=== PATIENT | female | born 1980 | race Caucasian/White ===

== ENCOUNTER 2019-06-07 06:19 | Inpatient (IN) | payer OTHER ==
[2019-06-07] MEDS ORDERED: LIDOCAINE 0.5% (PF) 5 MG/ML (50 ML SDV) SQ PRN (06:36)
[2019-06-07] MEDS ORDERED: CARBOPROST TROMETHAMINE 250 MCG/ML 1 ML AMP IM PRN (06:36)
[2019-06-07] MEDS ORDERED: OXYTOCIN 10 UNIT/ML 1 ML VIAL IM PRN (06:36)
[2019-06-07] MEDS ORDERED: METHYLERGONOVINE 0.2 MG/ML 1 ML AMP IM PRN (06:36)
[2019-06-07] MEDS ORDERED: TERBUTALINE 1 MG/ML VIAL SQ PRN (06:36)
[2019-06-07] MEDS: LACTATED RINGERS 1,000 ML IV SCH ×2 (06:39→09:25)
[2019-06-07] MEDS ORDERED: OXYTOCIN 30 UNITS/500 ML NS 30 UNIT in SALINE 1 500ML.BAG IV SCH (06:45)
[2019-06-07 06:54] LABS: Basophils % (A) 0 %; Eosinophils # (A) 0.1 k/uL (0-0.7); Eosinophils % (A) 1 %; HCT 32.4 % (34.0-46.0); Lymphocytes % (A) 19 %; MCH 28.4 pg (25.0-35.0); MCHC 34.1 g/dL (31.0-37.0); MCV 83.3 fL (80.0-100.0); Monocytes # (A) 0.4 k/uL (0-1.0); Monocytes % (A) 3 %; Neutrophils # (A) 7.7 k/uL (1.3-7.7); Neutrophils % (A) 75 %; Platelet Count 199 k/uL (150-450); RBC 3.89 m/uL (3.80-5.40); RDW 14.2 % (11.5-15.5); WBC 10.4 k/uL (3.8-10.6)
[2019-06-07] MEDS ORDERED: ROPIVACAINE 100 MG, fentaNYL (PF) 200 MCG in SODIUM CHLORIDE 0.9% 76 ML EPIDURAL ONE (10:13)
--- NOTE | 2019-06-07 10:36 | P.HPOB ---
History of Present Illness H&P Date: 06/07/19 Chief Complaint: IUP at 39-0/7 weeks, induction of labor this is a pleasant 38-year-old at 39-0/7 weeks that presents to labor and delivery for elective induction of labor. Patient notes good movement this morning she denies contractions loss of fluid or vaginal bleeding. Patient has been receiving routine care that has been essentially uncomplicated . On bloodwork this patient has a blood type of A+, rubella immune, RPR nonreactive, hepatitis B surface antigen negative, HIV negative, she did have negative genetic screening, GBS negative on 05/24/19 Review of Systems Constitutional: Denies chills, Denies fatigue, Denies fever Ears, nose, mouth and throat: Denies headache Cardiovascular: Reports leg edema Respiratory: Denies dyspnea Gastrointestinal: Denies constipation, Denies diarrhea, Denies nausea, Denies vomiting Genitourinary: Reports Past Medical History Past Medical History: GERD/Reflux History of Any Multi-Drug Resistant Organisms: None Reported Past Surgical History: No Surgical Hx Reported Past Anesthesia/Blood Transfusion Reactions: No Reported Reaction Past Psychological History: No Psychological Hx Reported Smoking Status: Never smoker Past Alcohol Use History: None Reported Past Drug Use History: None Reported - Past Family History Mother History Unknown: Yes Family Medical History: Hypertension Medications and Allergies Home Medications Medication Instructions Recorded Confirmed Type No Known Home Medications 06/07/19 06/07/19 History Allergies Allergy/AdvReac Type Severity Reaction Status Date / Time No Known Allergies Allergy Verified 06/07/19 06:35 Exam Osteopathic Statement: *. No significant issues noted on an osteopathic structural exam other than those noted in the History and Physical/Consult. 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 Results Result Diagrams: 06/07/19 06:40 Abnormal Lab Results - Last 24 Hours (Table) 06/07/19 Range/Units 06:40 Hgb 11.0 L (11.4-16.0) gm/dL Hct 32.4 L (34.0-46.0) % Assessment and Plan (1) Term Current Visit: Yes Status: Acute Code(s): Z34.90 - ENCNTR FOR SUPRVSN OF NORMAL , UNSP, UNSP TRIMESTER SNOMED Code(s): 24757400 Plan: patient is admitted to labor and delivery and Pitocin induction of labor is begun per hospital protocol. Patient does desire epidural placement as she notes contractions getting more uncomfortable since amniotomy. Will anticipate spontaneous vaginal delivery later this morning.
[2019-06-07] MEDS ORDERED: HYDROcodone/APAP 5-325MG 1 EACH TAB PO PRN (12:05)
[2019-06-07] MEDS ORDERED: BENZOCAINE/MENTHOL SPRAY 1 GM/SPRAY AEROSOL TOPICAL PRN (12:05)
[2019-06-07] MEDS ORDERED: diphenhydrAMINE 50 MG/ML 1 ML VIAL IVP PRN ×2 (12:05)
[2019-06-07] MEDS ORDERED: diphenhydrAMINE 50 MG CAP PO PRN (12:05)
[2019-06-07] MEDS ORDERED: WITCH HAZEL 1 EACH MED..PAD TOPICAL PRN (12:05)
[2019-06-07] MEDS ORDERED: LANOLIN CREAM 5 GM TUBE TOPICAL PRN (12:05)
[2019-06-07] MEDS ORDERED: diphenhydrAMINE 25 MG CAP PO PRN (12:05)
[2019-06-07] MEDS ORDERED: HYDROCORTISONE 2.5% RECTAL CREAM 30 GM TUBE RECTAL PRN (12:05)
[2019-06-07] MEDS ORDERED: SIMETHICONE 80 MG CHEWABLE PO PRN (12:05)
[2019-06-07] MEDS ORDERED: ZOLPIDEM 5 MG TAB PO PRN (12:05)
--- NOTE | 2019-06-07 12:11 | P.PROBDLV ---
Vaginal Delivery Note - . Vaginal Delivery Note: This pleasant 38-year-old 3 para 2001 presented to labor and delivery for elective induction at 39 0/7 weeks. Patient had an estimated due date of . Patient was admitted to labor and delivery for further details on this patient please see the dictated history and physical. Patient was admitted Pitocin was started per hospital protocol. Once regular contractions were noted amniotomy was performed and clear fluid was obtained. At this time patient was noted to be 4-5 cm and was requesting epidural. Epidural was placed by the anesthesia Department without difficulty. Patient progressed to complete began pushing and had a normal spontaneous vaginal delivery of a viable female infant at 1147, weight of 8 lbs. 8 oz. with Apgars of 9-9 at one and 5 mins respectively. After a two-minute delayed the umbo cord was doubly clamped and cut and the p lacenta was delivered spontaneously intact with a three-vessel cord being noted. On inspection the patient's vaginal vault a small first-degree vaginal laceration was noted and this was repaired in the usual fashion with 4-0 chromic. In addition there was a left labial laceration which was repaired with a [id number] suture of 4-0 chromic. The uterus was noted to be firm and below the umbilicus, estimated blood loss 300 mL. All counts were correct 2 patient and infant tolerated delivery well and are resting comfortably.
[2019-06-07] MEDS ORDERED: OXYTOCIN 20 UNITS/1000 ML NS 1,000 ML IV SCH (12:15)
[2019-06-07] MEDS: IBUPROFEN 600 MG TAB PO PRN ×2 (14:33→20:37)
[2019-06-07] MEDS: ACETAMINOPHEN TAB 325 MG TAB PO PRN ×2 (16:16→22:44)
[2019-06-07] MEDS: SENNOSIDES-DOCUSATE SODIUM 1 EACH TAB PO SCH (20:37)
[2019-06-07 23:42] VITALS: RESP 16
[2019-06-08] MEDS: IBUPROFEN 600 MG TAB PO PRN ×2 (02:25→11:50)
[2019-06-08 07:26] LABS: Basophils % (A) 0 %; Eosinophils # (A) 0.1 k/uL (0-0.7); Eosinophils % (A) 1 %; HCT 29.5 % (34.0-46.0); HGB 9.8 gm/dL (11.4-16.0); Lymphocytes # (A) 1.7 k/uL (1.0-4.8); Lymphocytes % (A) 14 %; MCH 28.3 pg (25.0-35.0); MCHC 33.4 g/dL (31.0-37.0); MCV 84.7 fL (80.0-100.0); Mean Platelet Volume 10.1; Monocytes # (A) 0.3 k/uL (0-1.0); Monocytes % (A) 3 %; Neutrophils # (A) 9.6 k/uL (1.3-7.7); Neutrophils % (A) 81 %; Platelet Count 186 k/uL (150-450); RBC 3.48 m/uL (3.80-5.40); RDW 14.2 % (11.5-15.5); WBC 11.8 k/uL (3.8-10.6)
[2019-06-08] MEDS: SENNOSIDES-DOCUSATE SODIUM 1 EACH TAB PO SCH (08:15)
[2019-06-08] MEDS: ACETAMINOPHEN TAB 325 MG TAB PO PRN (08:15)
--- NOTE | 2019-06-08 08:54 | P.DS ---
Providers Date of admission: 06/07/19 06:19 Expected date of discharge: 06/08/19 Attending physician: Meghan Cook Primary care physician: Stated None - Discharge Diagnosis(es) (1) Term Current Visit: Yes Status: Acute (2) Status post vaginal delivery Current Visit: Yes Status: Acute (3) Obstetric vaginal laceration with first degree perineal laceration Current Visit: Yes Status: Acute Hospital Course: This pleasant 38-year-old 3 para 2001 at 39 0/7 weeks presented to labor and delivery for elective induction of labor. Patient was admitted and Pitocin induction of labor was begun per hospital protocol. Once regular contractions were noted amniotomy was performed and clear fluid was obtained. She was noted to be 4-5 cm at this time. Patient quickly requested epidural, this was placed by the anesthesia Department without difficulty. Patient progressed to complete began pushing and had a normal spontaneous vaginal delivery of a viable female infant at 1147, weight of 8 lbs. 8 oz. with Apgars of 99 at one and 5 minutes respectively. Patient did sustain a first-degree vaginal laceration along with a left labial laceration this was repaired in the usual fashion with 4-0 chromic. Patient's course has been uneventful. On this day #1 she is ambulating and voiding without difficulty. She states her lochia is minimal. She states her pain is well-controlled with ibuprofen she is breast-feeding without difficulty she denies concerns and does wish discharge home at 24 hours. Patient Condition at Discharge: Good Plan - Discharge Summary New Discharge Prescriptions: No Action No Known Home Medications Discharge Medication List No Known Home Medications 06/07/19 [History] Follow up Appointment(s)/Referral(s): Meghan Cook DO [Doctor of Osteopathic Medicine] - 4 Weeks Patient Instructions/Handouts: Vaginal Delivery (DC), Vaginal Delivery (GEN) Discharge Disposition: HOME SELF-CARE
[2019-06-08 09:03] VITALS: BP 111/66; PULSE 103; TEMP 98.1
== END 2019-06-08 16:30 | disposition home or self-care (01) | DRG 807 ==
LOC: 4FBP 06:19
PROVIDERS: ADMIT Obstetrics & Gynecology Obstetrics; ATTEND Obstetrics & Gynecology Obstetrics
PROC: 10E0XZZ Delivery of Products of Conception, External Approach (ICD-10-PCS; principal; 2019-06-07)
PROC: 10907ZU Drainage of Amniotic Fluid, Diagnostic from Products of Conception, Via Natural or Artificial Opening (ICD-10-PCS; principal; 2019-06-07)
PROC: 0HQ9XZZ Repair Perineum Skin, External Approach (ICD-10-PCS; principal; 2019-06-07)
PROC: 3E0R3BZ Introduction of Anesthetic Agent into Spinal Canal, Percutaneous Approach (ICD-10-PCS; principal; 2019-06-07)
PROC: 00HU33Z Insertion of Infusion Device into Spinal Canal, Percutaneous Approach (ICD-10-PCS; principal; 2019-06-07)
DX: O99.613 Diseases of the digestive system complicating pregnancy, third trimester (principal); Z37.0 Single live birth; O70.0 First degree perineal laceration during delivery; Z82.49 Family history of ischemic heart disease and other diseases of the circulatory system; Z3A.39 39 weeks gestation of pregnancy; K21.9 Gastro-esophageal reflux disease without esophagitis
CPT/HCPCS: 85025; 86850; 86900; 86901

== ENCOUNTER → 2022-11-02 | Outpatient (CLI) | payer OTHER ==
--- NOTE | 2022-11-02 10:25 | MM ---
Reason for Exam: Screening (asymptomatic). Last mammogram was performed 5 year(s) and 0 month(s) ago. Patient History: Menarche at age 15. First Full-Term at age 25. Premenopausal. Patient has history of breast feeding. Last menstrual period: 10/27/2022 Risk Values: Tricia 5 year model risk: 0.7%. NCI Lifetime model risk: 10.0%. Prior Study Comparison: 03/10/2021 Bilateral Screening Mammogram, [facility]. Tissue Density: The breast tissue is extremely dense which could obscure a lesion on mammography. Findings: Analyzed By CAD. There is no suspicious group of microcalcifications or new suspicious mass in either breast. Overall Assessment: Negative, BI-RAD 1 Management: Screening Mammogram of both breasts in [address] [facility] will attempt to contact patient to return for supplemental views and ultrasound if indicated. Patient should continue monthly self-breast exams. A clinical breast exam by your physician is recommended on an annual basis. This exam should not preclude additional follow-up of suspicious palpable abnormalities. Note on Tricia scores and lifetime risk: 1. A Tricia score greater than 3% is considered moderate risk. If this is the case, consider specialist referral to assess eligibility for a risk reducing agent. 2. If overall lifetime risk for the development of breast cancer is 20% or higher, the patient may qualify for future screening with alternating mammogram and breast MRI. Electronically signed and approved by: Eliceo Curry DO
== END | disposition home or self-care (01) ==
LOC: RADMAMWWP 08:09
PROVIDERS: ATTEND Obstetrics & Gynecology Obstetrics
DX: Z12.31 Encounter for screening mammogram for malignant neoplasm of breast (principal)
CPT/HCPCS: 77067

== ENCOUNTER → 2022-11-25 | Outpatient (CLI) | payer OTHER ==
[2022-11-25 15:53] LABS: Basophils # (A) 0.03 X 10*3/uL (0.00-0.10); Basophils % (A) 0.5 %; Eosinophils # (A) 0.04 X 10*3/uL (0.04-0.35); Eosinophils % (A) 0.7 %; HCT 41.1 % (37.2-46.3); HGB 13.3 d/dL (12.0-15.0); Lymphocytes # (A) 2.15 X 10*3/uL (0.90-5.00); Lymphocytes % (A) 37.1 %; MCH 29.2 pg (27.0-32.0); MCHC 32.4 d/dL (32.0-37.0); MCV 90.1 FL (80.0-97.0); Mean Platelet Volume 10.4 FL (9.5-12.2); Monocytes # (A) 0.42 X 10*3/uL (0.20-1.00); Monocytes % (A) 7.2 %; NRBC Per 100 WBC 0 X 10*3/uL (0.00-0.01); Neutrophils # (A) 3.14 X 10*3/uL (1.80-7.70); Neutrophils % (A) 54.2 %; Platelet Count 265 X 10*3/uL (140-440); RBC 4.56 X 10*6/uL (4.10-5.20); RDW 13.2 % (11.5-14.5)
== END | disposition home or self-care (01) ==
LOC: LABPAT 09:24
PROVIDERS: ATTEND Obstetrics & Gynecology Obstetrics
DX: Z01.812 Encounter for preprocedural laboratory examination (principal); N30.20 Other chronic cystitis without hematuria
CPT/HCPCS: 85025

== ENCOUNTER 2022-12-09 07:59 | Day surgery (SDC) | payer OTHER ==
[2022-12-06 13:58] VITALS: BMI 27.4
[~2022-12-09 07:59] MED LIST: ACETAMINOPHEN IV (For NPO) 1,000 MG in EMPTY BAG 1 BAG IVPB PRN; HYDROmorphone 0.5 MG/0.5 ML SYRINGE IVP PRN; LACTATED RINGERS 1,000 ML IV SCH; ONDANSETRON 4 MG/2 ML VIAL IVP ONE; Pre Op ABX Message 1 EACH MISC MISCELLANE ONE; SCOPOLAMINE 1 MG/72 HR PATCH TRANSDERM ONE
[2022-12-09 08:29] VITALS: RESP 16
[2022-12-09] MEDS ORDERED: DEXAMETHASONE SOD PHOSPHATE 4 MG/ML 1 ML VIAL IV ONE (08:46)
[2022-12-09] MEDS ORDERED: LIDOCAINE 2% INJ 20 MG/ML (2 ML VIAL) ONE (09:24)
[2022-12-09] MEDS ORDERED: HYDROmorphone (PF) 1 MG/ML ONE (09:24)
[2022-12-09] MEDS ORDERED: NEOSTIGMINE 1 MG/ML 10 ML VIAL ONE (09:24)
[2022-12-09] MEDS ORDERED: fentaNYL (PF) 50 MCG/ML 2 ML AMP ONE (09:24)
[2022-12-09] MEDS ORDERED: SUCCINYLCHOLINE CHLORIDE 200 MG/10 ML VIAL IV ONE (09:24)
[2022-12-09] MEDS ORDERED: PROPOFOL 10 MG/ML 20 ML VIAL IV ONE (09:24)
[2022-12-09] MEDS ORDERED: KETOROLAC 15 MG/ML 1 ML VIAL ONE (09:24)
[2022-12-09] MEDS ORDERED: GLYCOPYRROLATE 0.2 MG/ML 2 ML VIAL ONE (09:24)
[2022-12-09] MEDS ORDERED: ePHEDrine 50 MG/ML 1 ML VIAL ONE (09:24)
[2022-12-09] MEDS ORDERED: MIDAZOLAM 2 MG/2 ML VIAL ONE (09:24)
[2022-12-09] MEDS ORDERED: ROCURONIUM 10 MG/ML (5 ML VIAL) IV ONE (09:24)
[2022-12-09] MEDS ORDERED: BUPIVACAINE (PF) 0.25% 30 ML VIAL SQ ONE ×2 (09:52→10:07)
[2022-12-09] MEDS ORDERED: LIDOCAINE 2% URO-JET JELLY 5 ML KIT MISCELLANE ONE (09:54)
[2022-12-09 10:24] VITALS: TEMP 96.9
--- NOTE | 2022-12-09 10:27 | P.OP ---
Date of Procedure: 12/09/22 Preoperative Diagnosis: Undesired fertility Postoperative Diagnosis: Same Anesthesia: GETA Surgeon: Meghan Cook Estimated Blood Loss (ml): 5 IV fluids (ml): 700 Urine output (ml): 100 Pathology: none sent Condition: stable Disposition: PACU Indications for Procedure: Family status complete Operative Findings: Globular uterus is appreciated bilateral ovaries appeared normal. Upper abdomen is explored and felt to be normal in nature. Appendix was visualized normal in nature. Description of Procedure: Patient was taken back to the operating suite where general anesthesia was obtained without difficulty by the anesthesia department. She was prepped and draped in the normal sterile fashion in the dorsal lithotomy position. A Red Rubber catheter was then used to drain the bladder of clear yellow urine. A weighted speculum was placed in the posterior vaginal vault, the anterior lip of the cervix was visualized and an acorn uterine manipulator was advanced into the cervix as a means to miniplate the uterus throughout the procedure. Attention was then turned to the patient's abdomen where in the umbilical fold a small skin incision is made. The Veress needles placed through this incision. Once the Veress needle was deemed to be in the proper position with a drop of CO2 pressure with insufflation of CO2 gas, CO2 insufflation was allowed to occur. At this time a 5 mm trocar and sleeve is placed through the skin incision toward the pneumoperitoneum. Laparoscope was in place and direct visualization of entry into the abdomen is noted. The trocar was removed with the sheath remaining in place. The above-noted findings were visualized. An additional port site is placed in the right mid lateral abdomen this is a 10 mm trocar and placed under direct visualization. At this time the Filshie clip applicator was advanced into the abdomen and the left fallopian tube was visualized grasped with the applicator and the fallopian tube was crushed with the clip. This was then repeated on the opposite side. Complete cross-section of the tube was noted to be within the clip. Pictures were taken and all instruments removed from the patient's abdomen. The skin incisions were closed with 4-0 Vicryl in a subcu fashion. Steri-Strips and sterile dressings were applied. All counts were noted be correct 2 at the end of the procedure. Of note prior to the procedure ending the acorn uterine manipulator was removed from the vaginal vault along with single-tooth tenaculum that was on the anterior lip of the cervix. Hemostasis was appreciated. Patient tolerated procedure well was taken the recovery room awake in stable condition.
[2022-12-09 11:27] VITALS: BP 106/68; PULSE 62
== END 2022-12-09 11:53 | disposition home or self-care (01) ==
LOC: OR 07:59
PROVIDERS: ATTEND Obstetrics & Gynecology Obstetrics
DX: Z30.2 Encounter for sterilization (principal)
CPT/HCPCS: 58670; J2250; J0330; J1100; J2710; J2405; J3010; J1170; J0131; J1885; J2704; J2001